=== PATIENT | male | born 1980 | race African-American/Black ===

== ENCOUNTER 2017-10-28 21:19 | Emergency (ER) | payer BC, OTHER ==
[~2017-10-28] VITALS: Ht 190.5 cm; Wt 102.1 kg
[2017-10-28 22:21] VITALS: BP 123/61
[2017-10-28] MEDS ORDERED: KETOROLAC TROMETH 60MG/2ML VIAL IM ONE (23:15)
== END 2017-10-28 23:45 | disposition home or self-care (01) ==
LOC: ER 21:19
DX: S39.012A Strain of muscle, fascia and tendon of lower back, initial encounter (principal); X50.9XXA Other and unspecified overexertion or strenuous movements or postures, initial encounter; Y93.89 Activity, other specified; Y92.89 Other specified places as the place of occurrence of the external cause; Y99.8 Other external cause status
CPT/HCPCS: 72131; 96372; 99284; J1885